=== PATIENT | male | born 1985 | race Caucasian/White ===

== ENCOUNTER → 2021-10-07 | Outpatient (REF) | payer OTHER ==
[~2021-10-07] MED LIST: ATOR1TAB21 PO; IBUP80TA PO
[2021-10-07 10:46] LABS: SEMEN APPEARANCE OPAQUE (OPAQUE)
[2021-10-07 10:47] LABS: SEMEN VISCOSITY LIQUID (LIQUID); SEMEN VOLUME 2.4 ml (2.0-5.0); SEMEN pH 7.5 (7.0-8.0); WBC CONCENTRATION <=1 M/ml (<=1 M/ml)
== END ==
LOC: M LAB REF 10:33
PROVIDERS: ATTEND Physician Assistant
DX: Z98.52 Vasectomy status (principal)